=== PATIENT | male | born 1965 | race Caucasian/White ===

== ENCOUNTER 2016-12-11 06:56 | Emergency (ER) | payer OTHER ==
[~2016-12-11] VITALS: Wt 101.0 kg
[~2016-12-11 06:56] MED LIST: CLOM25CA3 PO; CLON1TAB3 PO; DOXY100T2 PO; GEMF600T60 PO; METO-448 PO; OMEP20CA16 PO; RISP3TAB3 PO; RIVA20TA PO
[2016-12-11] MEDS ORDERED: METHYLPREDNISOLONE 125 MG INJ IM ONE (08:00)
[2016-12-11] MEDS ORDERED: DIPHENHYDRAMINE 50 MG INJ IM ONE (08:00)
--- NOTE | 2016-12-11 08:32 | RADRPT ---
PROCEDURE: CT Brain without contrast. CLINICAL INDICATION: 6-week history of vertigo. TECHNIQUE: A CT of the brain was performed on a [employer] 64-slice CT scanner utilizing axial imaging from the skull base through the vertex without IV contrast. Multiplanar reformatted images were made. Images were reviewed on a PACS workstation. The CTDIvol is 45.01 mGy and the DLP is 720 .23 mGycm. One or the following dose reduction techniques were used: -Automated exposure control. -Adjustment of the mA and/or KV according to patient's size. -Use of iterative reconstruction technique COMPARISON: None FINDINGS: There is no intracranial hemorrhage, mass effect, or midline shift. No extra-axial fluid collection is seen. The ventricles and sulci are normal in size and configuration. The density of the brain is normal, and the shepherd white matter differentiation appears well-preserved. The visualized paranasal sinuses and osseous structures are grossly unremarkable. IMPRESSION: 1. No evidence of acute intracranial pathology. 2. The brain appears normal for patient's age. RPTAT: AACC Physician Ann Date Time Electronically viewed and signed by Physician Ann on 12/11/2016 08:31 /
[2016-12-11] MEDS ORDERED: OMEP20CA16 PO (08:38)
[2016-12-11] MEDS ORDERED: BEN50 PO (08:38)
[2016-12-11] MEDS ORDERED: PRED20TA PO (08:38)
--- NOTE | 2016-12-11 08:39 | ERD ---
ER Documentation Chief Complaint Date/Time DATE: 12/11/16 TIME: 08:39 Chief Complaint upper lip swelling since this am. no sob or stridor. left arm pain HPI This is a 51-year-old male with history of hypertension, DVT and psych disorder presenting to the emergency room with multiple complaints. Patient states that when he woke up he noticed upper lip swelling. He denies any shortness of breath, chest pain, itchiness. Patient also complains of left arm swelling that comes and goes for the past week. Patient states that he is worried that he may have a blood clot in his left arm since he has had a history of blood clots in the past. Patient takes aspirin 325 mg, he does not take any other blood thinners. In addition patient also complains of unusual multiple complaints every night for the past 6 weeks which consist of a sore throat and imbalance and dizziness when he starts taking which last for a couple hours for 6 weeks, he denies any other symptoms at this moment. ROS All systems reviewed and are negative except as per history of present illness. Medications Home Meds Active Scripts Omeprazole* (Omeprazole*) 20 Mg Capsule.dr, 20 MG PO DAILY, #10 CAP Prov:MELO ALVAREZ PA-C 12/11/16 Diphenhydramine Hcl* (Benadryl*) 50 Mg Cap, 50 MG PO Q6H Y for ITCHING/RASH, # 30 CAP Prov:MELO ALVAREZ PA-C 12/11/16 Prednisone* (Prednisone*) 20 Mg Tab, 40 MG PO DAILY for 4 Days, TAB Prov:MELO ALVAREZ PA-C 12/11/16 Metoprolol Tartrate* (Lopressor*) 25 Mg Tab, 12.5 MG PO BID for 30 Days, TAB Prov:REGIDOBLANQUITA Merchant 04/11/16 Gemfibrozil* (Gemfibrozil*) 600 Mg Tablet, 600 MG PO AC BREAKFAST DINNER for 30 Days, TAB Prov:REGIDOBLANQUITA Mecrhant 04/11/16 Doxycycline* (Vibramycin*) 100 Mg Tab, 100 MG PO BID for 5 Days, TAB Prov:REGIDOBLANQUITA Merchant 04/11/16 Rivaroxaban* (Xarelto*) 20 Mg Tablet, 20 MG PO WITH DINNER for 30 Days, TAB Prov:BLANQUITA HORTON 04/11/16 Reported Medications Omeprazole* (Omeprazole*) 20 Mg Capsule.dr, 20 MG PO DAILY, #30 CAP 04/09/16 Clomipramine Hcl* (Anafranil*) 25 Mg Capsule, 100 MG PO DAILY, CAP 04/03/16 Clonazepam* (Clonazepam*) 1 Mg Tablet, 2 MG PO QHS Y for ANXIETY, TAB 04/03/16 Risperidone* (Risperidone*) 3 Mg Tablet, 6 MG PO QHS, TAB 04/03/16 Allergies Allergies: Coded Allergies: No Known Allergy (Unverified , 12/11/16) PMhx/Soc Medical and Surgical Hx: pt denies Surgical Hx History of Surgery: No Anesthesia Reaction: No Hx Cardiac Disorders: Yes (HTN, LLE DVT) Hx Psychiatric Problems: Yes (Bipolar, OCD, Panic Disorder) Hx Miscellaneous Medical Probl: Yes (ETOH Abuse) Hx Alcohol Use: Yes (3-4 Beers Daily) Hx Substance Use: No Hx Tobacco Use: No Smoking Status: Never smoker Physical Exam Vitals Vital Signs Date Time Temp Pulse Resp B/P Pulse Ox O2 Delivery O2 Flow Rate FiO2 12/11/16 07:07 98.8 98 20 132/92 98 Physical Exam GENERAL: well-developed/well-nourished, in no apparent distress, non-toxic appearing HENT: NC/AT, bilateral tympanic membrane is normal with good cone of light, nares patent, oropharynx clear without exudates Swelling and lips EYES: Conjunctiva normal, PERRLA, EOMI, no nystagmus noted NECK: Supple, no lymphadenopathy PULM: CTA bilaterally, no rales, rhonchi, or wheezing heard CV: Normal S1S2, RRR, good capillary refill GI: Soft, non-distended, normal bowel sounds, non-tender BACK: No midline tenderness, no masses, No CVAT EXT: No clubbing, cyanosis, or edema Nontender to palpation in the left or right arm NEURO: Alert and orientated to person, place, and time. CN II-IIX intact. Gait and coordination were normal. 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 CLINICAL INDICATION: 6-week history of vertigo. TECHNIQUE: A CT of the brain was performed on a GE [employer] 64-slice CT scanner utilizing axial imaging from the skull base through the vertex without IV contrast. Multiplanar reformatted images were made. Images were reviewed on a PACS workstation. The CTDIvol is 45.01 mGy and the DLP is 720.23 mGycm. One or the following dose reduction techniques were used: -Automated exposure control. -Adjustment of the mA and/or KV according to patient's size. -Use of iterative reconstruction technique COMPARISON: None FINDINGS: There is no intracranial hemorrhage, mass effect, or midline shift. No extra- axial fluid collection is seen. The ventricles and sulci are normal in size and configuration. The density of the brain is normal, and the shepherd white matter differentiation appears well-preserved. The visualized paranasal sinuses and osseous structures are grossly unremarkable. IMPRESSION: 1. No evidence of acute intracranial pathology. 2. The brain appears normal for patient's age. RPTAT: AACC Physician Ann Date Time Electronically viewed and signed by Physician Ann on 12/11/2016 08: 31 JH/ CC: MELO ALVAREZ PA-C Procedures/MDM This is a 51-year-old male with history of hypertension, DVT and psych disorder presenting to the emergency room with multiple complaints. Patient states that when he woke up he noticed upper lip swelling. On examination patient had swelling in his upper lips which is likely due to angioedema. Patient takes lisinopril therefore I discussed to discontinue lisinopril. Discussed to follow-up with his primary care physician for further evaluation management. There was no evidence of anaphylaxis or respiratory distress, airways are intact. Patient was given Solu-Medrol in the ED along with Benadryl. Patient be given a prescription for prednisone and Benadryl for outpatient care. Patient states that he can be following up with his primary care physician this Sunday for his other chief complaints however he discussed them today in the ED. Patient was complaining of intermittent left arm swelling that comes and goes for the past week, patient states that he has history of DVT before he was concerned. In the ED a venous ultrasound of the left upper extremity was done and was unremarkable for deep vein thrombosis. In addition patient also complains of unusual multiple complaints every night for the past 6 weeks which consist of a sore throat and imbalance and dizziness when he starts taking which last for a couple hours for 6 weeks, he denies any other symptoms at this moment. Patient had a normal neurological exam. Patient 's symptoms are not active at this moment. Patient is suitable to follow-up with his primary care physician for further action management. CT of the head was done and was unremarkable for any mass shift, intracranial bleeding. I am not too concerned at this time since patient has been having the symptoms for 6 weeks. This may also be psychogenic. I discussed with patient to call his primary care physician to try to make his appointment earlier. I have given him strict precautions to return to the ER for any worsening signs or symptoms. Patient understands and agrees with this plan. Departure Diagnosis: Primary Impression: Angioedema Encounter type: initial encounter Qualified Code: T78.3XXA - Angioedema, initial encounter Additional Impressions: Arm pain Laterality: left Qualified Code: M79.602 - Pain of left upper extremity Sore throat Condition: Stable Patient Instructions: Angioedema Additional Instructions: FOLLOW UP WITH YOUR PRIMARY CARE PHYSICIAN TOMORROW.Return to this facility if you are not improving as expected. Take all medicines as directed. Return to this facility if you are not improving as expected. Take documents with you to the primary care physician MELO ALVAREZ PA-C Dec 11, 2016 08:39
--- NOTE | 2016-12-11 09:24 | RADRPT ---
PROCEDURE: US upper extremity Venous. CLINICAL INDICATION: Left arm swelling TECHNIQUE: Multiple sonographic images of the left upper extremity venous system was obtained util izing grayscale, color-flow, compressive sonography and doppler imaging with augmentation. The imag es were reviewed on a PACS workstation. COMPARISON: none FINDINGS: There is normal compressibility and flow within the left internal jugular vein, subclavian vein, axi llary vein, brachial, basilic, cephalic, radial and ulnar veins. RPTAT: AA IMPRESSION: No sonographic evidence for venous thrombosis. .Hung Fernandez MD, Date Time Electronically viewed and signed by .Hung Fernandez MD, MD on 12/11/2016 09:23 .S/
[2016-12-11 09:31] VITALS: BP 134/76; PULSE 72; RESP 19; TEMP 98.2
[2016-12-11] MEDS ORDERED: CLON1TAB3 PO ×2 (19:44→19:45)
[2016-12-11] MEDS ORDERED: METO-448 PO (19:46)
[2016-12-11] MEDS ORDERED: CLOM25CA2 PO (19:46)
[2016-12-11] MEDS ORDERED: GEMF600T60 PO (19:55)
== END 2016-12-11 09:33 | disposition home or self-care (01) ==
LOC: FTE 06:56
DX: T78.3XXA Angioneurotic edema, initial encounter (principal); M79.602 Pain in left arm; J02.9 Acute pharyngitis, unspecified; I10 Essential (primary) hypertension; R42 Dizziness and giddiness; Z79.01 Long term (current) use of anticoagulants
CPT/HCPCS: 70450; 93971; 96372; 99285; J1200; J2930

== ENCOUNTER 2016-12-11 18:12 | Emergency (ER) | payer OTHER ==
[~2016-12-11] VITALS: Wt 101.0 kg
[~2016-12-11 18:12] MED LIST changes: +BEN50 PO; +PRED20TA PO
--- NOTE | 2016-12-11 19:17 | ERD ---
ER Documentation Chief Complaint Date/Time DATE: 12/11/16 TIME: 19:14 Chief Complaint LOWER LIP SWELLING ONSET ABOUT 2 HR [employer]. MILD SOB WITH NO STRIDOR HPI Patient is a 51-year-old male who reports his lower lip swelling beginning around 2-3 hours ago. He states last night he took yam root for the very first time. He thinks it may be in response to that he is not sure. There are no other new medications or exposures that he is aware of. He denies any tongue swelling, difficulty swallowing, or shortness of breath. His only other complaint is that his anxiety is significantly increased because of this lip swelling. He says he has been taking his Klonopin all day without any relief. He is requesting something else for his anxiety. He also mentions that he was here earlier today because his upper lip was swollen but he says that is completely resolved. The remainder of the systems are negative. ROS All systems reviewed and are negative except as per history of present illness. Medications Home Meds Reported Medications Gemfibrozil* (Gemfibrozil*) 600 Mg Tablet, 600 MG PO BID, TAB 12/11/16 Metoprolol Tartrate* (Lopressor*) 25 Mg Tab, 12.5 MG PO BID, #60 TAB 12/11/16 Clomipramine Hcl* (Anafranil*) 25 Mg Cap, 100 MG PO WITH MEALS, CAP 12/11/16 Clonazepam* (Clonazepam*) 1 Mg Tablet, 1 MG PO TID, TAB 12/11/16 Discontinued Reported Medications Clonazepam* (Clonazepam*) 1 Mg Tablet, 1 MG PO Q8H Y for ANXIETY, TAB 12/11/16 Omeprazole* (Omeprazole*) 20 Mg Capsule.dr, 20 MG PO DAILY, #30 CAP 04/09/16 Clomipramine Hcl* (Anafranil*) 25 Mg Capsule, 100 MG PO DAILY, CAP 04/03/16 Clonazepam* (Clonazepam*) 1 Mg Tablet, 2 MG PO QHS Y for ANXIETY, TAB 04/03/16 Risperidone* (Risperidone*) 3 Mg Tablet, 6 MG PO QHS, TAB 04/03/16 Discontinued Scripts Omeprazole* (Omeprazole*) 20 Mg Capsule., 20 MG PO DAILY, #10 CAP Prov:MELO ALVAREZ PA-C 12/11/16 Diphenhydramine Hcl* (Benadryl*) 50 Mg Cap, 50 MG PO Q6H Y for ITCHING/RASH, # 30 CAP Prov:MELO ALVAREZ PA-C 12/11/16 Prednisone* (Prednisone*) 20 Mg Tab, 40 MG PO DAILY for 4 Days, TAB Prov:MELO ALVAREZ PA-C 12/11/16 Metoprolol Tartrate* (Lopressor*) 25 Mg Tab, 12.5 MG PO BID for 30 Days, TAB Prov:REGIDORBLANQUITA 04/11/16 Gemfibrozil* (Gemfibrozil*) 600 Mg Tablet, 600 MG PO AC BREAKFAST DINNER for 30 Days, TAB Prov:REGIDORBLANQUITA 04/11/16 Doxycycline* (Vibramycin*) 100 Mg Tab, 100 MG PO BID for 5 Days, TAB Prov:REGIDORBLANQUITA 04/11/16 Rivaroxaban* (Xarelto*) 20 Mg Tablet, 20 MG PO WITH DINNER for 30 Days, TAB Prov:REGIDORBLANQUITA 04/11/16 Allergies Allergies: Coded Allergies: lisinopril (Verified Allergy, Unknown, swelling, 12/11/16) PMhx/Soc History of Surgery: No Anesthesia Reaction: No Hx Cardiac Disorders: Yes (HTN, LLE DVT) Hx Psychiatric Problems: Yes (Bipolar, OCD, Panic Disorder) Hx Miscellaneous Medical Probl: Yes (ETOH Abuse) Hx Alcohol Use: Yes (3-4 Beers Daily) Hx Substance Use: No Hx Tobacco Use: No Physical Exam Vitals Vital Signs Date Time Temp Pulse Resp B/P Pulse Ox O2 Delivery O2 Flow Rate FiO2 12/11/16 19:47 98 16 136/84 99 Room Air 12/11/16 18:15 98.6 98 20 168/91 100 Physical Exam Const: [] Well-developed well-nourished male sitting on the bed in no acute distress able to speak in full sentences and tolerating his secretions well Head: Atraumatic normocephalic Eyes: Normal Conjunctiva ENT: Normal External Ears, Nose , patient's lower lip is noticeably swollen, his tongue and posterior pharynx are not swollen. Neck: Full range of motion..~ No meningismus. Resp: Clear to auscultation bilaterally, no wheezing noted Cardio: Regular rate and rhythm, no murmurs Abd: Soft, non tender, non distended. Normal bowel sounds Skin: No petechiae or rashes Back: No midline or flank tenderness Ext: No cyanosis, or edema Neur: Awake and alert oriented 3 with a GCS of 15 Psych: Normal Mood and Affect Results 24 hrs Current Medications Medications (Trade) Dose Ordered Sig/Destiny Route PRN Reason Start Time Stop Time Status Last Admin Dose Admin Dexamethasone (Decadron) 6 mg ONCE ONCE IV 12/11/16 19:30 12/11/16 19:31 DC 12/11/16 19:41 Diphenhydramine HCl (Benadryl) 50 mg ONCE ONCE IV 12/11/16 19:30 12/11/16 19:31 DC 12/11/16 19:40 Diazepam (Valium) 5 mg ONCE ONCE IV 12/11/16 19:30 12/11/16 19:31 DC 12/11/16 19:41 Procedures/MDM Medical decision making: Patient presents with angioedema of the lower lip without any evidence for acute respiratory distress. We will go ahead and give him a shot of Decadron and Benadryl and observe him for an hour to make sure he does not develop any respiratory difficulty. I am going to go ahead and give him some Valium IV for his anxiety although not sure it will treat his anxiety any better than the Klonopin has. 2015: Patient's lip swelling has not progressed any. He does not have any evidence for respiratory distress. He appears stable for discharge home. He already has a prescription for steroids which she has been instructed to start tomorrow. He also has a prescription for Benadryl which she is to take when he gets home. He is also been advised that he can place some ice on the lip to help decrease swelling as well. Departure Diagnosis: Primary Impression: Angioedema of lips Encounter type: initial encounter Qualified Code: T78.3XXA - Angioedema of lips, initial encounter Condition: Good Patient Instructions: Angioedema Additional Instructions: Continue with the Benadryl and steroids as previously prescribed. You may also apply ice to her lips to decrease the swelling. Return to the emergency department if any time you have tongue or throat swelling, trouble breathing, trouble swallowing, or any new or worsening symptoms. BARBARA WEBB Dec 11, 2016 19:17
[2016-12-11] MEDS ORDERED: DIPHENHYDRAMINE 50 MG INJ IV ONE (19:30)
[2016-12-11] MEDS ORDERED: DEXAMETHASONE 10 MG/ML 1 ML INJ IV ONE (19:30)
[2016-12-11] MEDS ORDERED: DIAZEPAM 5 MG/ML SYG IV ONE (19:30)
[2016-12-11] MEDS ORDERED: CLON1TAB3 PO ×2 (19:44→19:45)
[2016-12-11] MEDS ORDERED: CLOM25CA2 PO (19:46)
[2016-12-11] MEDS ORDERED: METO-448 PO (19:46)
[2016-12-11] MEDS ORDERED: GEMF600T60 PO (19:55)
[2016-12-11 20:52] VITALS: BP 145/89; PULSE 100; RESP 20; TEMP 98.1
== END 2016-12-11 20:54 | disposition home or self-care (01) ==
LOC: E/R 18:12
DX: T78.3XXA Angioneurotic edema, initial encounter (principal); R40.2252 Coma scale, best verbal response, oriented, at arrival to emergency department; I10 Essential (primary) hypertension; R40.2362 Coma scale, best motor response, obeys commands, at arrival to emergency department; R40.2142 Coma scale, eyes open, spontaneous, at arrival to emergency department; Z79.01 Long term (current) use of anticoagulants
CPT/HCPCS: 96374; 96375; 99284; J1100; J1200; J3360